=== PATIENT | male | born 2000 | race Two or more races ===

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

== ENCOUNTER 2021-07-28 10:30 | Outpatient (CLI) | payer OTHER | END 2021-07-28 10:50 | disposition home or self-care (01) | LOC: PPH VACUNA 10:30 | PROVIDERS: ATTEND Emergency Medicine Pediatric Emergency Medicine | DX: Z23 Encounter for immunization (principal) ==